=== PATIENT | female | born 1985 | race Caucasian/White ===

== ENCOUNTER → 2020-09-12 11:41 | Outpatient (BNVA) | payer OTHER, MEDICAID, SELFPAY | PROVIDERS: Visit Provider Advanced Practice Midwife | DX: Z76.89 Persons encountering health services in other specified circumstances (principal) ==

== ENCOUNTER → 2020-09-23 09:37 | Outpatient (BNVA) | payer OTHER, MEDICAID, SELFPAY | PROVIDERS: Visit Provider Obstetrics & Gynecology | DX: Z76.89 Persons encountering health services in other specified circumstances (principal) ==

== ENCOUNTER 2020-10-16 11:04 | Outpatient (REF) | payer OTHER, SELFPAY | END 2020-10-16 11:05 | disposition home or self-care (01) | LOC: HO.LAB 11:04 | PROVIDERS: PCP Orthopaedic Surgery; Visit Provider Obstetrics & Gynecology | DX: Z01.818 Encounter for other preprocedural examination (principal); N39.0 Urinary tract infection, site not specified | CPT/HCPCS: 87086; 87088; 87147; 87186 ==

== ENCOUNTER 2022-12-23 14:21 | Outpatient (REF) | payer BC, SELFPAY | END 2022-12-23 14:22 | disposition home or self-care (01) | LOC: HO.LAB 14:21 | PROVIDERS: PCP Orthopaedic Surgery; Visit Provider Advanced Practice Midwife | DX: Z13.89 Encounter for screening for other disorder (principal) ==

== ENCOUNTER 2022-12-23 15:15 | Outpatient (REF) | payer BC, SELFPAY ==
[2022-12-24 07:04] LABS: CT PCR NOT DETECTED (Not Detect.); NG PCR NOT DETECTED (Not Detect.)
[2022-12-24 12:43] LABS: BV Int Neg Control Negative (Negative); BV Int Pos Control Positive (Positive)
[2022-12-29 10:08] LABS: HPV 16 RNA DETECTED (NOT DETECTED); HPV mRNA E6/E7 rflx Detected (Not Detected)
== END 2022-12-23 15:16 | disposition home or self-care (01) ==
LOC: HO.LNP 15:15
PROVIDERS: Visit Provider Advanced Practice Midwife
DX: Z01.419 Encounter for gynecological examination (general) (routine) without abnormal findings (principal); N92.1 Excessive and frequent menstruation with irregular cycle; Z20.2 Contact with and (suspected) exposure to infections with a predominantly sexual mode of transmission
CPT/HCPCS: 0353U; 87480; 87510; 87624; 87625; 87660; 88142

== ENCOUNTER 2023-01-08 13:59 | Outpatient (REF) | payer BC, SELFPAY ==
--- NOTE | ~2023-01-08 | US_ITS ---
EXAMINATION: US PELVIS CLINICAL INFORMATION: Abnormal vaginal/uterine bleeding. LMP 01/01/2023. COMPARISON: Pelvic ultrasound 08/01/2020. TECHNIQUE: Ultrasound of the pelvis is performed using both transabdominal and transvaginal transducers along with Doppler. Transvaginal imaging is performed due to inadequate visualization transabdominally. FINDINGS: The uterus is anteverted measuring 9.9 x 3.7 x 6.6 cm. No focal uterine lesion. The endometrium measures 0.9 cm in thickness with two focal hyperechoic polypoid-like observations measuring 0.8 cm and 0.4 cm. Simple appearing nabothian cysts overlying the cervix. The ovaries are normal in morphology with preserved flow at the moment of this examination. The right ovary measures 4.2 x 2.6 x 3.2 cm (18 mL) and the left ovary measures 3.5 x 3.2 x 2.1 cm (12 mL). Multiple simple follicles are noted in both ovaries, largest in the right ovary measuring 2 cm, for which no imaging follow-up is recommended. Small amount of free fluid in the cul-de-sac is likely physiologic. US/US pelvic and transvaginal IMPRESSION: 1. There are two hyperechoic polypoid-like observations in the endometrium which could represent endometrial polyps. Recommend STUDENT SERVICES DEAN referral to determine further management. 2. Small amount of free fluid in the cul-de-sac is likely physiologic.
[2023-01-08 15:11] LABS: Hematocrit 34.4 % (37.0-47.0); Hemoglobin 10.1 g/dl (12.0-16.0); Mean Corpuscular HGB Conc 29.4 g/dl (31.0-35.0); Mean Corpuscular Hemoglobin 23.6 pg (27.0-33.0); Mean Corpuscular Volume 80.4 fL (80.0-98.0); Mean Platelet Volume 8.9 fL (9.4-12.3); Platelet Count 311 X10*3/uL (160-400); Red Blood Count 4.28 X10*6/uL (4.20-5.50); Red Cell Distribution Width 16.4 % (11.0-16.0); White Blood Count 4.7 X10*3/uL (4.8-10.8)
[2023-01-11 08:22] LABS: HBc Num1 0.06 S/CO (0.00-0.79); HIV AB/AG Nonreactive (Nonreactive); HIV Num 1 0.06 S/CO (0.00-0.99); Hepatitis B Core Antibody Nonreactive (Nonreactive); ~HepC Num1 0.09 S/CO (0.00-0.79); ~Hepatitis C Antibody Nonreactive (Nonreactive)
[2023-01-11 08:26] LABS: Syphilis Screen Nonreactive (Nonreactive)
== END 2023-01-08 14:00 | disposition home or self-care (01) ==
LOC: HO.US 13:59
PROVIDERS: Visit Provider Advanced Practice Midwife
DX: Z11.4 Encounter for screening for human immunodeficiency virus [HIV] (principal); N93.9 Abnormal uterine and vaginal bleeding, unspecified; N92.1 Excessive and frequent menstruation with irregular cycle; Z20.2 Contact with and (suspected) exposure to infections with a predominantly sexual mode of transmission
CPT/HCPCS: 36415; 76830; 76856; 84443; 85027; 86704; 86780; 86803; 87389

== ENCOUNTER → 2023-02-03 11:01 | Outpatient (BNVA) | payer BC, SELFPAY | PROVIDERS: PCP Orthopaedic Surgery; Visit Provider Advanced Practice Midwife | DX: Z71.2 Person consulting for explanation of examination or test findings (principal); N84.0 Polyp of corpus uteri; N84.1 Polyp of cervix uteri; N76.0 Acute vaginitis; B96.89 Other specified bacterial agents as the cause of diseases classified elsewhere | CPT/HCPCS: 81025 ==

== ENCOUNTER 2023-02-03 11:52 | Outpatient (REF) | payer BC, SELFPAY ==
[2023-02-03 12:02] LABS: MANUAL DIFF FLAG NO
[2023-02-03 13:10] LABS: Basophils Percent Auto 0.6 % (0-2); Eosinophils Absolute Auto 0.2 X10*3/uL (0.0-0.4); Eosinophils Percent Auto 3.3 % (0-4); Hematocrit 35.1 % (37.0-47.0); Hemoglobin 10.3 g/dl (12.0-16.0); Imm Gran Abs Auto 0.01 X10*3/uL (0.00-0.03); Imm Gran Pct Auto 0.2 % (0.0-0.4); Lymphocytes Absolute Auto 0.9 X10*3/uL (1.2-4.9); Lymphocytes Percent Auto 19.3 % (20-40); Mean Corpuscular HGB Conc 29.3 g/dl (31.0-35.0); Mean Corpuscular Volume 81.8 fL (80.0-98.0); Mean Platelet Volume 9.4 fL (9.4-12.3); Monocytes Absolute Auto 0.4 X10*3/uL (0.1-1.2); Monocytes Percent Auto 8.3 % (2-11); Neutrophils Absolute Auto 3.3 x10*3/uL (2.0-8.3); Neutrophils Percent Auto 68.3 % (45-73); Platelet Count 262 X10*3/uL (160-400); Red Blood Count 4.29 X10*6/uL (4.20-5.50); Red Cell Distribution Width 16.2 % (11.0-16.0); White Blood Count 4.8 X10*3/uL (4.8-10.8)
[2023-02-03 13:58] LABS: Anion Gap 12 (12-20); Blood Urea Nitrogen 5 mg/dL (9-16); Calcium 8.5 mg/dL (8.4-10.2); Carbon Dioxide 27 mmol/L (22-29); Chloride 106 mmol/L (96-108); Cholesterol 142 mg/dL; Estimated Glomerular Filt Rate > 60; Glucose Random 74 mg/dL (60-115); HDL Cholesterol 40 mg/dL; Iron 24 mcg/dL (30-160); LDL Cholesterol Calculated 82 mg/dl; Percent Iron Saturation 8 % (15-50); Potassium 3.9 mmol/L (3.3-5.1); Sodium 141 mmol/L (135-145); Total Iron Binding Capacity 291 mcg/dL (228-428); Triglycerides 104 mg/dL; Unsaturated Iron Binding 267 ug/dL
[2023-02-03 14:13] LABS: Ferritin 7 ng/mL (10-122)
== END 2023-02-03 11:53 | disposition home or self-care (01) ==
LOC: HO.LAB 11:52
PROVIDERS: PCP Family Medicine; Visit Provider Family Medicine
DX: Z13.89 Encounter for screening for other disorder (principal)
CPT/HCPCS: 36415; 80048; 80061; 82728; 83540; 85025

== ENCOUNTER 2023-02-04 12:37 | Outpatient (REF) | payer BC, SELFPAY | END 2023-02-04 12:38 | disposition home or self-care (01) | LOC: HO.LNP 12:37 | PROVIDERS: PCP Family Medicine; Visit Provider Obstetrics & Gynecology | DX: R87.612 Low grade squamous intraepithelial lesion on cytologic smear of cervix (LGSIL) (principal); N84.0 Polyp of corpus uteri | CPT/HCPCS: 57454; 57500; 81025; 88305; 88342; 88360 ==

== ENCOUNTER → 2023-02-10 15:06 | Outpatient (BNVA) | payer BC, SELFPAY | PROVIDERS: PCP Family Medicine; Visit Provider Obstetrics & Gynecology | DX: Z13.89 Encounter for screening for other disorder (principal) ==

== ENCOUNTER 2023-02-12 09:04 | Day surgery (SDC) | payer BC, SELFPAY ==
--- NOTE | 2023-02-11 09:05 | HO.ANESPROP2 ---
HPI - Anesthesia Eval Consult details Narrative: 37yo F for D&C Hysteroscopy possible myomectomy/polypectomy, LEEP Cone PMFSH Active Problems Active Problems: All Active Problems (Updated 02/10/23 @ 16:23 by Delfino Gamez MD) LGSIL on Pap smear of cervix (Acute) Polyp of corpus uteri (Acute) Unwanted fertility (Acute) Bacterial vaginosis (Acute) Right ovarian cyst (Acute) Encounter to discuss test results (Acute) Past Medical History Medical History Abnormal Pap smear of cervix History of kidney stones Hx of hemorrhoids Family History Family History Mother Family hx of hypertension Social History Social History Alcohol intake: current Alcohol intake frequency: holidays/special occasions only Sexual orientation: Straight/Heterosexual Gender identity: Female Meds Allergies Allergy/AdvReac Type Severity Reaction Status Date / Time No Known Allergies Allergy Verified 02/10/23 15:52 Home Medications Medication Instructions Recorded Confirmed Last Taken Type ferrous gluconate 324 mg (38 mg 324 mg PO DAILY 12/23/22 Unknown History iron) tablet Exam Exam Date and Time: February 11, 2023 09 Pertinent Lab Results Pertinent Lab Results: Laboratory Tests 02/03/23 02/03/23 12:00 12:00 WBC 4.8 Hgb 10.3 L Hct 35.1 L Plt Count 262 Sodium 141 Potassium 3.9 Chloride 106 Carbon Dioxide 27 BUN 5 L Creatinine 0.57 Assessment and Plan Assessment Anesthesia Assessment: Chart Reviewed
[2023-02-12 09:15] VITALS: BMI 24.9
[2023-02-12 09:28] VITALS: BP 109/70; PULSE 83; RESP 15; TEMP 36.6; O2SAT 99
[2023-02-12 09:30] LABS: UPreg QC Valid YES; Urine Pregnancy NEGATIVE (NEGATIVE)
--- NOTE | 2023-02-12 09:30 | HO.ANESPROP2 ---
[facility] Active Problems Active Problems: All Active Problems (Updated 02/10/23 @ 16:23 by Delfino Gamez MD) Encounter to discuss test results (Acute) Right ovarian cyst (Acute) Bacterial vaginosis (Acute) Unwanted fertility (Acute) Polyp of corpus uteri (Acute) LGSIL on Pap smear of cervix (Acute) Past Medical History Medical History (Updated 02/12/23 @ 09:31 by Janice Pires, RN) Abnormal Pap smear of cervix History of kidney stones Hx of hemorrhoids Iron deficiency Family History Family History Mother Family hx of hypertension Family history of problems with anesthesia: No Surgical History Surgical History (Updated 02/12/23 @ 09:16 by Janice Pires, RN) Hx of hemorrhoidectomy History of Problems with Anesthesia: No Social History Social History Alcohol intake: current Alcohol intake frequency: holidays/special occasions only Patient Tobacco Use Status: Never used Tobacco Use of substances other than those prescribed or required for medical reasons: No Are you DNR?: No Advance Directives: No Advance Directives Information Provided: Yes Sexual orientation: Straight/Heterosexual Gender identity: Female Meds Allergies Allergy/AdvReac Type Severity Reaction Status Date / Time No Known Allergies Allergy Verified 02/12/23 09:31 Active Medications: Current Medications Lactated Ringer's (Lr) 1,000 mls @ 100 mls/hr IVCONT .Q10H [facility] Home Medications Medication Instructions Recorded Confirmed Last Taken Type ferrous gluconate 324 mg (38 mg 324 mg PO DAILY 12/23/22 Unknown History iron) tablet Exam Exam Date and Time: February 12, 2023 0930 Height,Weight and Vital Signs: Height 5 ft 4 in Weight 65.771 kg Airway Mallampati Class: I TM Dist: >3cm Neck ROM: Full Assessment and Plan Assessment Anesthesia Assessment: Anesthesia Plan Discussed and Chart Reviewed Final Anesthetic Review Family History of Problems with Anesthesia: No History of Problems with Anesthesia: No NPO: Yes ASA Class: I Final Preanesthetic Review: No Changes in Pt Med Stat, Meds/Allgs Chart Reviewed, Consent Obtained/Reviewed and Anes Risks/Benef Reviewed Patient Risk: Low Procedure Risk: Low Anesthetic Plan Anesthetic Plan: GA Disposition: Standard PACU
[2023-02-12] MEDS: Lactated Ringers 1,000 ML 100 ML IVCONT (09:41)
--- NOTE | 2023-02-12 11:33 | MHC.SHP ---
Pre-Procedural Eval Section A Date of Service: 02/12/23 The patient is an INPATIENT: No Changes since office visit: No Cold of Flu in the past 2 weeks, No New Medical Problems, No Changes in Medication and No Patient answered all questions The History & Physical has been completed within 30 days and I have reviewed it.: Yes Section B Chief Complaint: Polyp of corpus uteri Allergies: Allergies Allergy/AdvReac Type Severity Reaction Status Date / Time No Known Allergies Allergy Verified 02/12/23 09:31 Plan Diagnosis/Plan: Unchanged I have reviewed the history and physical and performed a pertinent physical examination on my patient. No changes have occurred unless specified. Time Spent With Patient Time: Total time managing care of this patient today ____ minutes.
--- NOTE | 2023-02-12 11:33 | PM.OP ---
Brief Operative Note Date of Service: 02/12/23 Pre-op diagnosis: 2 endometrial polyps by ultrasound Discrepancy between cervical cytology (LSIL cannot rule out high-grade) and pathology (MANJULA I) Post-op diagnosis: other (Normal endometrial cavity, discrepancy between cervical cytology and pathology) Procedure: Hysteroscopy D&C LEEP cone with top-hat excision and post cone ECC Surgeon: Delfino Gamez MD Anesthesia: GLMA and other (Paracervical block) Was an Retail Loan Originator Assistant used for this Procedure?: No Estimated blood loss (mL): 0 Pathology: other (Cervical cone, top-hat, Post cone ECC, endometrial scraping) Condition: stable Disposition: other (Home)
[2023-02-12 11:34] VITALS: BP 101/51; PULSE 76; RESP 16; TEMP 36.4; O2SAT 100
--- NOTE | 2023-02-12 11:35 | P.OP_ITS ---
Operative Note Operative Note Date of Service: 11/01/20 Narrative: Preop Diagnosis: 2 endometrial polyps by ultrasound, discrepancy between cervical cytology showing low-grade BELLA cannot rule out high-grade and cervical pathology showing MANJULA I Operation: Diagnostic Hysteroscopy, Dilataion & Curettage , LEEP cone with top- hat excision and post cone ECC Post Op Diagnosis: Normal endometrial and endocervical cavity, no evidence of pathology QBL: Minimal Anesthesia: GLMA Surgeon: Delfino Gamez MD Pin Ticket Machine Operator: None Complication: None Pathology: Endometrial Scrapings, cervical cone, top-hat excision, post cone ECC Procedure: The patient was put in the dorsal lithotomy position, scrubbed, and draped in the usual manner. A sterile speculum was inserted in the patient's vagina. The cervix is assessed using the colposcope with acetic acid , at least 1 cm of the squamocolumnar junction was observed.The anterior lip of the cervix was grasped with a single tooth tenaculum. The cervix was dilated up to 5 mm, then the scope was inserted in the patient's uterus. Inspection revealed normal endocervical & endometrial cavity with no evidence of pathology. The scope was taken out of the uterine cavity , then sharp curetting was carried on with no complications. At the end of the procedure, all instruments were taken out of the patient uterine and vaginal cavity. The single tooth tenaculum was removed and homeostasis was assured using pressure. 20 x 5 mm size loop was selected based upon the diameter of the lesion. Lugol solution was used to outline the lesions and area of the transformation zone order to be removed 10 cc of xylocaine with epinephrine were injected submucosally into the surface of the cervix (ectocervix) at the 3, 6, 9, and 12 o'clock positions. The electrosurgical generator is set at 40 lujan on blend 1. The loop is carefully passed simultaneously around and under the transformation zone, in order to ensure excising it making sure the lesion is at least 5 mm far from the specimen margins . The loop was allowed to glide through the cervix from one loreta e to the other, allowing the cutting current to divide the tissue. Additional tissue was excised from this area with a smaller-diameter loop , endo cervical top-hat excision was performed An endo cervical curettage is performed following completion of excision, and hemostasis is obtained with a Ball electrode or regular tip cautery. At the end, Monsel's solution was applied to the cone bed. The patient tolerated the procedure well and, all instruments were taken out of the patient vaginal cavity, and the patient was transferred to the PACU in stable condition.
[2023-02-12 11:39] VITALS: BP 95/48; PULSE 71; RESP 16; O2SAT 100
[2023-02-12 11:44] VITALS: BP 92/47; PULSE 67; RESP 16; O2SAT 100
[2023-02-12 11:49] VITALS: BP 95/47; PULSE 77; RESP 16; O2SAT 100
[2023-02-12 12:04] VITALS: BP 104/56; PULSE 82; RESP 16; TEMP 36.3; O2SAT 100
== END 2023-02-12 12:40 | disposition home or self-care (01) ==
PROVIDERS: PCP Family Medicine; Visit Provider Obstetrics & Gynecology
PROC: 0UDB8ZZ Extraction of Endometrium, Via Natural or Artificial Opening Endoscopic (ICD-10-PCS; CPT 58558; principal; 2023-02-12 11:10)
PROC: 0UBC7ZZ Excision of Cervix, Via Natural or Artificial Opening (ICD-10-PCS; CPT 57522; 2023-02-12 11:10)
DX: N84.0 Polyp of corpus uteri (principal); N87.1 Moderate cervical dysplasia
CPT/HCPCS: 58558; 57461; 81025; 88305; 88307; 88342; 88360; J1100; J1885; J2250; J2405; J3010

== ENCOUNTER → 2023-03-11 10:53 | Outpatient (BNVA) | payer BC, SELFPAY | PROVIDERS: PCP Family Medicine; Visit Provider Obstetrics & Gynecology | DX: Z13.89 Encounter for screening for other disorder (principal) ==

== ENCOUNTER 2024-01-25 09:56 | Outpatient (AMB) | payer BC, SELFPAY ==
[2024-01-25 10:00] VITALS: BP 106/61; BMI 24.0
--- NOTE | 2024-01-25 10:00 | A.OFFVIS_ITS ---
Intake Vital Signs 01/25/24 10:00 Height 5 ft 4 in Weight 140 lb BMI 24.0 BP 106/61 Intake Visit Reasons: 6 month cotesting Promotional Advertising Assistant Required: No Information Interpreted: non-clinical & clinical Home Planning Consultant Salesperson: Home Planning Consultant Salesperson Present Accompanied by: Self / Same As Patient Allergies No Known Allergies Allergy (Verified 01/25/24 10:02) Is last menstrual period known: Yes Last menstrual period: 01/11/24 Post menopausal: No Patient : No HPI HPI Comments History of Present Illness Details Presenting for 6 months co testing for MANJULA 2 status post LEEP cone with post cone ECC top-hat excision with negative margins. Complaining of vaginal discharge associated with foul odor . PFSH Medical History Iron deficiency Abnormal Pap smear of cervix Hx of hemorrhoids History of kidney stones Surgical History Hx of hemorrhoidectomy Family History Mother Family hx of hypertension Social History Alcohol intake: current Alcohol intake frequency: holidays/special occasions only Patient Tobacco Use Status: Never used Tobacco Patient : No Sexual orientation: Straight/Heterosexual Gender identity: Female Female Reproductive History Menstrual Age of Menarche: 10 Date of last menstrual period: 01/11/24 Review of Systems Const All systems reviewed & are unremarkable except as noted in HPI and below Physical Exam Vital Signs: Last Vital Signs BP 106/61 01/25/24 10:00 BMI result Body Mass Index 24.0 General: Yes no CVA tenderness External Female Exam: normal external appearance and normal appearance of the urethra Speculum Exam - Vagina: normal appearance of the vagina, normal palpation, no lesions and no masses Speculum Exam - Cervix: normal appearance of the cervix, normal palpation, no lesions, no masses and nontender Bimanual exam- vagina & uterus: normal bimanual exam, normal palpation, uterine size normal, normal palpation, uterine shape normal, No Cervical tenderness present and non-tender Bimanual Exam- Adnexa, other: normal adnexae Back/Spine/Pelvis Back: no CVA tenderness Assessment & Plan Assessment & Plan (1) MANJULA II (cervical intraepithelial neoplasia II): Comment: Status post LEEP cone with post cone ECC, negative margins Code(s): N87.1 - Moderate cervical dysplasia Plan: Co testing done, instructions given the patient to schedule 1 year co testing if negative if abnormal will proceed with colposcopy treat accordingly. All questions answered, the patient verbalized understanding. (2) Bacterial vaginosis: Code(s): N76.0 - Acute vaginitis; B96.89 - Other specified bacterial agents as the cause of diseases classified elsewhere Plan: GC and chlamydia cultures with BV panel taken. Per CDC recommendation, will screen for STI, HepBs Ag, HIV, RPR, Hep C Ab ordered. Will treat with Flagyl 500 mg p.o. b.i.d. x 7 days, Instructions given to the patient to refrain from sexual activity or to use condoms consistently and correctly during the BV treatment regimen, not to douch, it might increase the risk for relapse, and to call if symptoms persist or recur. Orders: Orders HIV Ab/Ag Today B96.89 - Other specified bacterial agents as the cause of diseases classified elsewhere, N76.0 - Acute vaginitis Hepatitis C Antibody Today B96.89 - Other specified bacterial agents as the cause of diseases classified elsewhere, N76.0 - Acute vaginitis Hepatitis B Surface Antigen Today B96.89 - Other specified bacterial agents as the cause of diseases classified elsewhere, N76.0 - Acute vaginitis Syphilis Screen Today B96.89 - Other specified bacterial agents as the cause of diseases classified elsewhere, N76.0 - Acute vaginitis Medications: New metronidazole 500 mg PO BID 14 tabs 0RF 7 days Coding Level of Care Code Est Pt Level 3 (36843) Diagnoses MANJULA II (cervical intraepithelial neoplasia II) N87.1 Bacterial vaginosis N76.0; B96.89
== END 2024-01-25 10:42 | disposition home or self-care (01) ==
LOC: HO.HWS 09:56
PROVIDERS: PCP Family Medicine; Visit Provider Obstetrics & Gynecology
DX: N87.1 Moderate cervical dysplasia (principal); N76.0 Acute vaginitis; B96.89 Other specified bacterial agents as the cause of diseases classified elsewhere
CPT/HCPCS: 99213

== ENCOUNTER 2024-01-25 09:56 | Outpatient (REF) | payer BC, SELFPAY ==
[2024-01-31 23:13] LABS: HPV mRNA E6/E7 rflx Not Detected (Not Detected)
== END 2024-01-25 09:57 | disposition home or self-care (01) ==
LOC: HO.LNP 09:56
PROVIDERS: PCP Family Medicine; Visit Provider Obstetrics & Gynecology
DX: Z12.4 Encounter for screening for malignant neoplasm of cervix (principal); Z11.51 Encounter for screening for human papillomavirus (HPV); N87.1 Moderate cervical dysplasia; N76.0 Acute vaginitis
CPT/HCPCS: 87624; 88142

== ENCOUNTER 2024-01-25 10:21 | Outpatient (REF) | payer BC, SELFPAY ==
[2024-01-25 12:00] LABS: HBsAGNum1 0.29 S/CO (0.00-0.99); HIV AB/AG Nonreactive (Nonreactive); HIV Num 1 0.04 S/CO (0.00-0.99); Hepatitis B Surface Antigen Negative (Negative); Syphilis Screen Nonreactive (Nonreactive); ~HepC Num1 0.15 S/CO (0.00-0.79); ~Hepatitis C Antibody Nonreactive (Nonreactive)
[2024-01-25 13:01] LABS: CT PCR NOT DETECTED (Not Detect.); NG PCR NOT DETECTED (Not Detect.)
[2024-01-26 14:48] LABS: BV Int Neg Control Negative (Negative); BV Int Pos Control Positive (Positive)
== END 2024-01-25 10:22 | disposition home or self-care (01) ==
LOC: HO.LAB 10:21
PROVIDERS: PCP Family Medicine; Visit Provider Obstetrics & Gynecology
DX: Z11.4 Encounter for screening for human immunodeficiency virus [HIV] (principal); N76.0 Acute vaginitis; B96.89 Other specified bacterial agents as the cause of diseases classified elsewhere; R87.612 Low grade squamous intraepithelial lesion on cytologic smear of cervix (LGSIL)
CPT/HCPCS: 0353U; 86780; 86803; 87340; 87389; 87480; 87510; 87660

== ENCOUNTER 2025-02-22 09:11 | Outpatient (REF) | payer BC, SELFPAY ==
[2025-03-01 10:26] LABS: HPV Genotype 16 Negative (Negative); HPV Genotype 18 Negative (Negative); HPV High Risk Negative (Negative)
== END 2025-02-22 09:12 | disposition home or self-care (01) ==
LOC: HO.LNP 09:11
PROVIDERS: PCP Family Medicine; Visit Provider Obstetrics & Gynecology
DX: Z01.419 Encounter for gynecological examination (general) (routine) without abnormal findings (principal); Z11.51 Encounter for screening for human papillomavirus (HPV); Z87.42 Personal history of other diseases of the female genital tract
CPT/HCPCS: 87626; 88175

== ENCOUNTER 2025-02-22 09:11 | Outpatient (AMB) | payer BC, SELFPAY ==
--- NOTE | 2025-02-22 09:13 | MHC.OFFVIS ---
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 No complaints. Last Pap/HPV was negative in 02/12, this was preceded by low-grade MANJULA rule out high-grade, colpo biopsy showed MANJULA 1, LEEP cone pathology MANJULA 2 with negative margins in 02/11 No previous screening Mammogram PFSH Medical History Iron deficiency Abnormal Pap smear of cervix Hx of hemorrhoids History of kidney stones Surgical History Hx of hemorrhoidectomy Family History Mother Family hx of hypertension Social History Alcohol intake: current Alcohol intake frequency: holidays/special occasions only Patient Tobacco Use Status: Never used Tobacco Sexual orientation: Straight/Heterosexual Gender identity: Female Female Reproductive History Menstrual Age of Menarche: 10 Duration of menses: 8-10 days Date of last menstrual period: 01/26/25 Total pregnancies: 3 Full term: 3 Date of last pap smear: 01/25/24 (negative pap smear, negative hpv) History of abnormal pap smear: No Review of Systems Const All systems reviewed & are unremarkable except as noted in HPI and below Card Reports as per HPI Resp Reports as per HPI GI Reports as per HPI and Reports no additional complaints Reports as per HPI Physical Exam Const General: cooperative, healthy appearing and comfortable Chest Chest palpation & inspection: normal inspection of the chest and normal palpation of entire chest wall Breast/axilla inspection: normal inspection of the breasts and normal inspection of the axillae Breast/axilla palpation: normal palpation of the breasts, normal palpation of the axillae and no axillary lymphadenopathy Resp Effort & Inspection: normal respiratory effort Auscultation: clear to auscultation bilaterally Percussion: percussion normal Cardio Palpation: normal PMI Rate: regular rate Rhythm: regular rhythm Heart sounds: no murmurs and no rubs Peripheral pulses: Peripheral pulses 2+ throughout GI Inspection: Yes normal to inspection Palpation (GI): Soft to palpation, nontender, no guarding, not rigid and No hepatosplenomegaly present Percussion: Yes normal to percussion Auscultation: normal bowel sounds Rectal Exam - Female: deferred General: Yes bladder normal to palpation External Female Exam: No lesion Speculum Exam - Vagina: normal appearance of the vagina, normal palpation, normal vaginal discharge and not erythematous Speculum Exam - Cervix: normal appearance of the cervix and normal palpation Bimanual exam- vagina & uterus: normal bimanual exam, normal palpation, uterine size normal, bladder normal to palpation, consistency normal and normal palpation Bimanual Exam- Adnexa, other: normal adnexae, no masses and no tenderness Assessment & Plan Assessment & Plan (1) Well woman exam: Comment: MANJULA 2 negative margins status post LEEP cone in 02/11 Co testing 02/08 4- Code(s): Z01.419 - Encounter for gynecological examination (general) (routine) without abnormal findings Category: Medical Plan: Cotesting done. Mammogram ordered. Counseled the patient about the recommended dietary allowance of 1000 mg of Calcium & 600 IU of vitamin D. The patient was instructed to perform monthly self-breast exams and to schedule an annual exam in a year; All questions answered and the patient verbalized understanding. Instructed the patient to schedule annual exam in a year Orders: Orders MM tomosynthesis screening BI Today Z12.31 - Encounter for screening mammogram for malignant neoplasm of breast Coding Level of Care Code Est Pt Prev Care 40-64y(81019) Diagnoses Well woman exam Z01.419
[2025-02-22 09:17] VITALS: BP 106/66; BMI 24.9
== END 2025-02-22 09:27 | disposition home or self-care (01) ==
LOC: HO.HWS 09:11
PROVIDERS: PCP Family Medicine; Visit Provider Obstetrics & Gynecology
DX: Z01.419 Encounter for gynecological examination (general) (routine) without abnormal findings (principal)
CPT/HCPCS: 99396; 99459

== ENCOUNTER → 2025-05-16 08:30 | Outpatient (BNV) | payer BC, SELFPAY | PROVIDERS: PCP Family Medicine; Visit Provider Internal Medicine | DX: Z12.31 Encounter for screening mammogram for malignant neoplasm of breast (principal) | CPT/HCPCS: 77063; 77067 ==

== ENCOUNTER 2025-05-16 08:32 | Outpatient (REF) | payer BC, SELFPAY ==
--- NOTE | ~2025-05-16 | MM_ITS ---
EXAMINATION: MM SCREENING DIGITAL BREAST TOMOSYNTHESIS, BILATERAL CLINICAL INFORMATION: Screening. Asymptomatic. COMPARISON: Mammography: Baseline. TECHNIQUE: Digital breast mammography with tomosynthesis is performed in both the craniocaudal and mediolateral oblique views along with computer-aided detection (CAD). FINDINGS: There are scattered areas of fibroglandular density (ACR BI-RADS breast composition Category b). There are no significant masses, abnormal calcifications, or other abnormalities. MM/MM tomosynthesis screening BI IMPRESSION: No mammographic evidence of malignancy. ASSESSMENT: BI-RADS BI-RADS 1 - Negative RECOMMENDATION: Routine annual mammography screening. 1 year F/U This examination should not preclude the clinical evaluation of a suspicious palpable abnormality. This patient's information was entered into a reminder system with a target due date for their next mammogram. Electronically signed by: Sara Lanza DO 06/02/2025 03:01 PM EDT
== END 2025-05-16 08:33 | disposition home or self-care (01) ==
LOC: HO.MAMMO 08:32
PROVIDERS: PCP Family Medicine; Visit Provider Obstetrics & Gynecology
DX: Z12.31 Encounter for screening mammogram for malignant neoplasm of breast (principal)
CPT/HCPCS: 77063; 77067